=== PATIENT | female | born 1975 | race Caucasian/White ===

== ENCOUNTER 2020-10-18 09:53 | Emergency (ER) | payer MEDICARE, MEDICAID, SELFPAY ==
[2020-10-18 09:54] VITALS: BP 140/83; PULSE 92; RESP 15; TEMP 36.4; O2SAT 96; BMI 43.9
--- NOTE | 2020-10-18 10:19 | ED.VIS.DENTA ---
HPI History of Present Illness Chief Complaint: Dental Informant: patient Onset/Context/Timing Onset: Days (2) Context: Gradual Onset Timing: Continuous Quality: throbbing Location: entire maxillary gingiva Current Severity: Severe Maximum Severity: Severe Worsened by: lying down Relieved by: - (has tried percocet, ibuprofen, and ice; doesn't feel like it's helping) Associated Symptoms Assocated Symptom - Dental: Negative for fever, jaw swelling or face swelling Narrative Narrative: 2 days ago patient had dental implant surgery on her maxillary row all the way across, the mandibular ones were already done, she is having a lot more pain than she did with the mandibular ones despite taking the medication she was given including Percocet ibuprofen and an antibiotic. She just took her last Percocet the only gave her a couple days worth, she states the pain is severe and she wants to try to figure out a way to decrease her pain level. She denies any fevers or chills or discharge or bleeding. PFSH PFSH Home Medications acetaminophen-codeine 1 tab PO Q6H PRN 3 Days #12 tab 10/18/20 [Rx Last Taken Unknown] Allergy/AdvReac Type Severity Reaction Status Date / Time No Known Allergies Allergy Verified 10/18/20 09:55 Social History Smoking Status: Unknown if ever smoked ROS ROS ED Constitutional Constitutional ED: Denies chills or fever(s) Eyes Eyes: Denies change in vision or double vision ENT ENT ED: Reports dental pain; Denies sinus pain or throat swelling Cardiovascular Cardiovascular: Denies chest pain or palpitations Respiratory/Chest Respiratory/Chest: Denies cough or dyspnea Integumentary Denies abscess or rash Neurologic Neurologic: Denies headache(s), paresthesias or weakness EXAM Physical Exam Const Vital Signs: 10/18/20 09:54 Temperature 97.6 F L Temperature Source Temporal Pulse Rate 92 Respiratory Rate 15 Blood Pressure 140/83 H Blood Pressure Mean 102 Pulse Ox 96 Oxygen Delivery Method Room Air Positive well nourished and well developed General Appearance ED: well developed and NAD HEENT Denies rhinorrhea HEENT Narrative: There are 4 small metal dental implants in place along the entire maxillary row, there is no drainage or bleeding. There is no abscess. The gingiva are mildly tender only, and diffusely homogenously swollen compared with the mandibular gingiva. No trismus. The rest of the oral exam is normal. Patient is edentulous. Face and Sinus: sinuses nontender Throat: posterior oropharynx normal Eyes PERRL and EOMs intact bilaterally Neck no lymphadenopathy and supple Resp normal respiratory effort Neuro oriented x3 and CN's II-XII intact bilaterally Sensorium / Orientation: alert Gait (Neuro): normal gait Psych mental status grossly normal and thought process normal Skin no rashes or lesions noted and no wounds MDM MDM MDM Narrative Medical decision making narrative: Patient stated for another procedure in the past she had Tylenol with codeine and they really helped her pain. She was wondering if she could try 1 of those, I advised her that it is safe since she only had 325 mg acetaminophen when she took her pill a couple hours ago, so we did that in addition to some Cetacaine spray on the gingiva, the latter of which did not help, suggesting it is the bone pain from the implants. However, the codeine really helped her discomfort and she felt much better although the pain certainly was still present. We will prescribe her this and avoid trying nerve blocks, she was advised to continue taking her antibiotic and follow-up with her dentist/oral surgeon. The Percocet she had is out. Discharge Plan Triage Chief Complaint: Dental ED Provider: Antonio Ryder Dx/Rx/DC Orders Clinical Impression: Postoperative pain Instructions: ED Post Op Wound Check, Pain Prescriptions: New acetaminophen-codeine 300-30 mg tablet 1 tab PO Q6H PRN (Reason: pain) 3 Days Qty: 12 RF: 0 Referrals: Lee Ann Paniagua [Other] Dentist,Your [STAFF PHYSICIAN] - 3-5 Days Disposition Disposition: Home, Self Care
[2020-10-18] MEDS: Tetracaine/Benzocaine/Butamben 1 APPLIC TOPICAL (10:35)
[2020-10-18] MEDS: Acetaminophen/Codeine #3 Tablet 1 TABLET PO (10:35)
== END 2020-10-18 11:36 | disposition home or self-care (01) ==
PROVIDERS: Emergency Provider Emergency Medicine
DX: G89.18 Other acute postprocedural pain (principal)
CPT/HCPCS: 99282